=== PATIENT | female | born 1965 | race Caucasian/White ===

== ENCOUNTER → 2021-02-25 | Outpatient (CLI) | payer OTHER | LOC: MRI 02-24 08:30 | DX: G44.89 Other headache syndrome (principal); G43.109 Migraine with aura, not intractable, without status migrainosus | CPT/HCPCS: 70544; 70551 ==

== ENCOUNTER → 2021-07-03 | Outpatient (CLI) | payer OTHER | LOC: KOH-I 11:49 | DX: J44.9 Chronic obstructive pulmonary disease, unspecified (principal) | CPT/HCPCS: 71046 ==

== ENCOUNTER → 2021-09-02 | Outpatient (CLI) | payer OTHER | LOC: HEART 5 09:43 | DX: R07.9 Chest pain, unspecified (principal); I08.3 Combined rheumatic disorders of mitral, aortic and tricuspid valves | CPT/HCPCS: 93306 ==